=== PATIENT | female | born 1935 | race Two or more races ===

== ENCOUNTER 2018-01-28 05:47 | Emergency (ER) | payer OTHER ==
[~2018-01-28] VITALS: Ht 152.4 cm; Wt 50.8 kg
[~2018-01-28 05:47] MED LIST: AMARANTH100 GM MC; CLONAZEPAM0.5 MG/TAB; EFFEXOR25 MG PO; ENALAPRIL MALEAT5 MG PO; GLIMEPIRIDE4 MG; HUMULIN 50/50 V10 ML SQ; VASOFLEX TABLE1 EACH PO; VISTARIL25 MG PO
== END 2018-01-28 14:28 | disposition home or self-care (01) ==
LOC: ER 05:47 → CPU-OBS 05:55 → ER 14:28
DX: R07.89 Other chest pain (principal); F41.8 Other specified anxiety disorders

== ENCOUNTER 2018-05-26 05:49 | Emergency (ER) | payer OTHER ==
[~2018-05-26] VITALS: Ht 152.4 cm; Wt 50.8 kg
[2018-05-26] MEDS ORDERED: VISTARIL50 MG PO (08:26)
[2018-05-26] MEDS ORDERED: APETIGEN-PLUS1 EACH PO (08:26)
[2018-05-26] MEDS ORDERED: CENTRUM WOMEN1 EACH PO (08:26)
[2018-05-26] MEDS ORDERED: SUPER B-50 COM1 EACH PO (08:26)
== END 2018-05-26 08:42 | disposition home or self-care (01) ==
LOC: ER 05:49
DX: R00.2 Palpitations (principal); G47.09 Other insomnia; F41.8 Other specified anxiety disorders; F32.89 Other specified depressive episodes

== ENCOUNTER 2018-06-23 08:19 | Emergency (ER) | payer OTHER ==
[~2018-06-23] VITALS: Ht 152.4 cm; Wt 52.6 kg
[~2018-06-23 08:19] MED LIST changes: +APETIGEN-PLUS1 EACH PO; +CENTRUM WOMEN1 EACH PO; +SUPER B-50 COM1 EACH PO; +VISTARIL50 MG PO
[2018-06-23] MEDS ORDERED: CLONAZEPAM0.5 MG PO (08:43)
[2018-06-23] MEDS ORDERED: VASOTEC5 MG PO (08:43)
[2018-06-23] MEDS ORDERED: GLIMEPIRIDE4 MG PO (08:44)
== END 2018-06-23 15:10 | disposition home or self-care (01) ==
LOC: ER 08:19
DX: E86.0 Dehydration (principal); R42 Dizziness and giddiness; E11.65 Type 2 diabetes mellitus with hyperglycemia

== ENCOUNTER 2018-06-27 13:22 | Outpatient (CLI) | payer OTHER ==
[~2018-06-27 13:22] MED LIST changes: +CLONAZEPAM0.5 MG PO; +GLIMEPIRIDE4 MG PO; +VASOTEC5 MG PO
== END 2018-06-27 13:35 | disposition home or self-care (01) ==
LOC: RAD 13:22
DX: J44.9 Chronic obstructive pulmonary disease, unspecified (principal)

== ENCOUNTER 2018-12-28 20:39 | Emergency (ER) | payer OTHER ==
[~2018-12-28] VITALS: Ht 152.4 cm; Wt 50.8 kg
== END 2018-12-28 23:53 | disposition home or self-care (01) ==
LOC: ER 20:39
DX: G45.8 Other transient cerebral ischemic attacks and related syndromes (principal); R53.1 Weakness; R47.81 Slurred speech

== ENCOUNTER 2019-02-13 16:49 | Emergency (ER) | payer OTHER ==
[~2019-02-13] VITALS: Ht 152.4 cm; Wt 49.0 kg
== END 2019-02-13 21:34 | disposition home or self-care (01) ==
LOC: ER 16:49
DX: S90.222A Contusion of left lesser toe(s) with damage to nail, initial encounter (principal); W22.8XXA Striking against or struck by other objects, initial encounter; Y93.89 Activity, other specified; Y92.89 Other specified places as the place of occurrence of the external cause; Y99.8 Other external cause status

== ENCOUNTER 2019-04-07 10:15 | Emergency (ER) | payer OTHER ==
[~2019-04-07] VITALS: Ht 149.9 cm; Wt 50.8 kg
== END 2019-04-07 11:44 | disposition home or self-care (01) ==
LOC: ER 10:15
DX: B02.9 Zoster without complications (principal)

== ENCOUNTER 2019-05-07 21:47 | Emergency (ER) | payer OTHER ==
[~2019-05-07] VITALS: Ht 154.9 cm; Wt 50.8 kg
[2019-05-07] MEDS ORDERED: VASOTEC10 MG PO (22:24)
[2019-05-07] MEDS ORDERED: NORVASC5 MG PO (22:25)
[2019-05-08] MEDS ORDERED: MECLIZINE HCL25 MG PO (04:21)
== END 2019-05-08 04:38 ==
LOC: ER 21:47
DX: R42 Dizziness and giddiness (principal); F41.8 Other specified anxiety disorders

== ENCOUNTER 2019-11-05 11:51 | Emergency (ER) | payer OTHER ==
[~2019-11-05] VITALS: Ht 152.4 cm; Wt 50.8 kg
[~2019-11-05 11:51] MED LIST changes: +MECLIZINE HCL25 MG PO; +NORVASC5 MG PO; +VASOTEC10 MG PO
[2019-11-05] MEDS ORDERED: ARTHRITIS PAIN650 M2 (12:12)
[2019-11-05] MEDS ORDERED: SUPER B-50 COM1 EACH (12:14)
[2019-11-05] MEDS ORDERED: DUREZOL5 ML (12:14)
[2019-11-05] MEDS ORDERED: VITAMIN D35000 UNI2 (12:15)
[2019-11-05] MEDS ORDERED: LATANOPROST2.5 ML (12:15)
[2019-11-05] MEDS ORDERED: KETOROLAC TROMET5 M1 (12:15)
[2019-11-05] MEDS ORDERED: ULTRACET PO (13:41)
== END 2019-11-05 13:54 | disposition home or self-care (01) ==
LOC: ER 11:51
DX: M54.89 Other dorsalgia (principal)

== ENCOUNTER 2020-09-13 09:30 | Emergency (ER) | payer OTHER ==
[~2020-09-13] VITALS: Ht 152.4 cm; Wt 51.3 kg
[~2020-09-13 09:30] MED LIST changes: +ARTHRITIS PAIN650 M2; +DUREZOL5 ML; +KETOROLAC TROMET5 M1; +LATANOPROST2.5 ML; +SUPER B-50 COM1 EACH; +ULTRACET PO; +VITAMIN D35000 UNI2
[2020-09-13] MEDS ORDERED: GLIMEPIRIDE4 M1 PO (09:59)
[2020-09-13] MEDS ORDERED: VITAMIN D3125 MC1 PO (10:00)
[2020-09-13] MEDS ORDERED: NORVASC2.5 MG PO (10:00)
[2020-09-13] MEDS ORDERED: BISOPROLOL-HCT1 EACH PO (10:01)
[2020-09-13] MEDS ORDERED: HUMULIN N100 UNIT/2 SQ (10:01)
[2020-09-13] MEDS ORDERED: COMBIGAN EYE DRO5 ML OP (10:02)
[2020-09-14] MEDS ORDERED: VISTARIL25 MG PO (10:49)
[2020-09-14] MEDS ORDERED: PEPCID AC20 MG PO (10:49)
== END 2020-09-13 13:30 | disposition home or self-care (01) ==
LOC: ER 09:30
DX: R00.2 Palpitations (principal); T44.7X5A Adverse effect of beta-adrenoreceptor antagonists, initial encounter; Y92.89 Other specified places as the place of occurrence of the external cause

== ENCOUNTER 2020-09-14 09:19 | Emergency (ER) | payer OTHER ==
[~2020-09-14] VITALS: Ht 149.9 cm; Wt 51.7 kg
[~2020-09-14 09:19] MED LIST changes: +BISOPROLOL-HCT1 EACH PO; +COMBIGAN EYE DRO5 ML OP; +GLIMEPIRIDE4 M1 PO; +HUMULIN N100 UNIT/2 SQ; +NORVASC2.5 MG PO; +VITAMIN D3125 MC1 PO
[2020-09-14] MEDS ORDERED: VISTARIL25 MG PO (10:49)
[2020-09-14] MEDS ORDERED: PEPCID AC20 MG PO (10:49)
== END 2020-09-14 15:56 | disposition home or self-care (01) ==
LOC: ER 09:19
DX: R11.0 Nausea (principal); R53.81 Other malaise; Z03.818 Encounter for observation for suspected exposure to other biological agents ruled out

== ENCOUNTER 2020-11-22 18:30 | Emergency (ER) | payer OTHER ==
[~2020-11-22] VITALS: Ht 160 cm; Wt 50.8 kg
[~2020-11-22 18:30] MED LIST changes: +PEPCID AC20 MG PO
[2020-11-22] MEDS ORDERED: VASOTEC10 MG (19:36)
== END 2020-11-23 00:35 | disposition home or self-care (01) ==
LOC: ER 18:30
DX: E11.65 Type 2 diabetes mellitus with hyperglycemia (principal); I16.0 Hypertensive urgency; I10 Essential (primary) hypertension; Z79.4 Long term (current) use of insulin

== ENCOUNTER 2021-05-19 06:39 | Emergency (ER) | payer OTHER ==
[~2021-05-19] VITALS: Ht 152.4 cm; Wt 52.6 kg
[~2021-05-19 06:39] MED LIST changes: +VASOTEC10 MG
== END 2021-05-19 13:21 | disposition home or self-care (01) ==
LOC: ER 06:39
DX: R53.1 Weakness (principal); E86.0 Dehydration

== ENCOUNTER 2022-01-05 20:30 | Emergency (ER) | payer OTHER ==
[~2022-01-05] VITALS: Ht 154.9 cm; Wt 51.7 kg
== END 2022-01-05 23:42 | disposition home or self-care (01) ==
LOC: ER 20:30
DX: F41.8 Other specified anxiety disorders (principal); F45.21 Hypochondriasis; F41.0 Panic disorder [episodic paroxysmal anxiety]; F32.A Depression, unspecified; E11.9 Type 2 diabetes mellitus without complications; I10 Essential (primary) hypertension; Z79.4 Long term (current) use of insulin; Z79.84 Long term (current) use of oral hypoglycemic drugs

== ENCOUNTER 2022-05-27 17:04 | Emergency (ER) | payer OTHER ==
[~2022-05-27] VITALS: Ht 154.9 cm; Wt 53.1 kg
== END 2022-05-27 20:40 ==
LOC: ER 17:04
DX: E11.649 Type 2 diabetes mellitus with hypoglycemia without coma (principal); Z79.4 Long term (current) use of insulin; Z79.84 Long term (current) use of oral hypoglycemic drugs; T38.3X5A Adverse effect of insulin and oral hypoglycemic [antidiabetic] drugs, initial encounter; Y92.9 Unspecified place or not applicable

== ENCOUNTER 2022-06-01 15:51 | Emergency (ER) | payer OTHER ==
[~2022-06-01] VITALS: Ht 157.5 cm; Wt 52.2 kg
== END 2022-06-01 18:39 | disposition home or self-care (01) ==
LOC: ER 15:51
DX: F41.9 Anxiety disorder, unspecified (principal); I10 Essential (primary) hypertension; E11.9 Type 2 diabetes mellitus without complications; Z79.4 Long term (current) use of insulin; Z79.84 Long term (current) use of oral hypoglycemic drugs

== ENCOUNTER 2022-08-02 13:48 | Emergency (ER) | payer OTHER ==
[~2022-08-02] VITALS: Ht 157.5 cm; Wt 52.2 kg
[2022-08-02] MEDS ORDERED: TOPROL XL25 M1 PO (14:14)
== END 2022-08-02 16:32 | disposition home or self-care (01) ==
LOC: ER 13:48
DX: E11.65 Type 2 diabetes mellitus with hyperglycemia (principal); Z79.4 Long term (current) use of insulin

== ENCOUNTER 2022-09-06 17:58 | Emergency (ER) | payer OTHER ==
[~2022-09-06] VITALS: Ht 154.9 cm; Wt 53.5 kg
[~2022-09-06 17:58] MED LIST changes: +TOPROL XL25 M1 PO
== END 2022-09-06 21:28 | disposition home or self-care (01) ==
LOC: ER 17:58
DX: I10 Essential (primary) hypertension (principal); E11.65 Type 2 diabetes mellitus with hyperglycemia; Z79.4 Long term (current) use of insulin; R07.89 Other chest pain; Z20.822 Contact with and (suspected) exposure to COVID-19

== ENCOUNTER 2023-08-06 06:34 | Emergency (ER) | payer OTHER ==
[~2023-08-06] VITALS: Ht 152.4 cm; Wt 72.6 kg
[~2023-08-06 06:34] MED LIST changes: +NABUMETONE500 MG PO; +XOPENEX0.63 MG/3 IH
[2023-08-06] MEDS ORDERED: CLARITIN10 M1 PO (06:55)
[2023-08-06 10:39] LABS: HEMATOCRIT 38.7 % (36.0-45.00); HEMOGLOBIN 13.1 g/dL (12.0-15.00); MEAN CELL VOLUME 87.6 fL (80.00-100.00); MEAN CORPUSCULAR HEMOGLOBIN 29.6 pg (27.00-32.0); MEAN CORPUSCULAR HGB CONC 33.7 g/dl (32.0-36.0); PLATELET COUNT 241 K/uL (150-450); RED BLOOD COUNT 4.42 M/uL (4.00-6.00); RED CELL DISTRIBUTION WIDTH 13.3 % (11.5-14.5)
[2023-08-06 11:19] LABS: ALBUMIN 3.7 gm/dL (3.4-5.0); BILIRUBIN TOTAL 0.49 mg/dL (0.3-1.2); CALCIUM 9.2 mg/dL (8.5-10.1); CREATININE SERUM 0.76 mg/dL (0.55-1.02); GFR 72.16; GLOBULINA 4.4 G/DL (2.4-3.5); POTASSIUM 4.3 mEq/L (3.5-5.1); TOTAL PROTEIN 8.1 gm/dL (6.4-8.2)
== END 2023-08-06 14:16 | disposition home or self-care (01) ==
LOC: ER 06:34
PROVIDERS: Emergency Medicine
DX: F41.9 Anxiety disorder, unspecified (principal); R11.10 Vomiting, unspecified; E11.9 Type 2 diabetes mellitus without complications; Z79.4 Long term (current) use of insulin; Z79.84 Long term (current) use of oral hypoglycemic drugs; I10 Essential (primary) hypertension; Z20.822 Contact with and (suspected) exposure to COVID-19
CPT/HCPCS: 36415; 93005; 96365; 99284; J2405

== ENCOUNTER 2023-08-20 03:07 | Emergency (ER) | payer OTHER ==
[~2023-08-20] VITALS: Ht 160 cm; Wt 68.0 kg
[~2023-08-20 03:07] MED LIST changes: +CLARITIN10 M1 PO
[2023-08-20] MEDS ORDERED: BENAZEPRIL HCL5 MG PO (03:30)
[2023-08-20 04:44] LABS: HEMATOCRIT 35.8 % (36.0-45.00); HEMOGLOBIN 12.3 g/dL (12.0-15.00); MEAN CELL VOLUME 85.3 fL (80.00-100.00); MEAN CORPUSCULAR HEMOGLOBIN 29.3 pg (27.00-32.0); MEAN CORPUSCULAR HGB CONC 34.3 g/dl (32.0-36.0); PLATELET COUNT 263 K/uL (150-450); RED CELL DISTRIBUTION WIDTH 13.2 % (11.5-14.5)
[2023-08-20 05:22] LABS: CALCIUM 9.3 mg/dL (8.5-10.1); CREATININE SERUM 0.71 mg/dL (0.55-1.02); GFR 78.05; POTASSIUM 4.16 mEq/L (3.5-5.1)
[2023-08-20 05:27] LABS: ABG PH 7.403 (7.35-7.45); ABG PO2 80.1 mmHg (80-100); ABG pCO2 26.1 mmHg (35-45); BASE EXCESS -6.9 mmol/l; BICARBONATE 15.9 mmol/l (23-25); SaO2 95.5 %; Tco2 16.7 mmol/l
[2023-08-20 05:28] LABS: allen test SATISFACTORY; o2 21 %; puncture site RADIAL RIGHT
[2023-08-20] MEDS ORDERED: ALBUTEROL2.5 MG/3 M IH (08:38)
[2023-08-20] MEDS ORDERED: TUSSIN DM SYRU118 ML PO (08:38)
== END 2023-08-20 08:46 ==
LOC: ER 03:07
PROVIDERS: General Practice
DX: R06.02 Shortness of breath (principal); I10 Essential (primary) hypertension

== ENCOUNTER 2024-04-30 15:19 | Emergency (ER) | payer OTHER ==
[~2024-04-30] VITALS: Ht 149.9 cm; Wt 57.6 kg
[~2024-04-30 15:19] MED LIST changes: +ALBUTEROL2.5 MG/3 M IH; +BENAZEPRIL HCL5 MG PO; +TUSSIN DM SYRU118 ML PO
[2024-04-30] MEDS ORDERED: JARDIANCE10 MG PO (15:27)
[2024-04-30] MEDS ORDERED: INSULIN REGULAR, HUMAN 1,000 UNIT/10 ML UNITS SUBCUTANEO ONE (17:00)
[2024-04-30] MEDS ORDERED: CLONIDINE HCL 0.1 MG TABLET PO ONE ×2 (17:00→17:47)
[2024-04-30 17:16] LABS: HEMATOCRIT 36.4 % (36.0-45.00); HEMOGLOBIN 12.5 g/dL (12.0-15.00); MEAN CELL VOLUME 84.6 fL (80.00-100.00); MEAN CORPUSCULAR HEMOGLOBIN 28.9 pg (27.00-32.0); MEAN CORPUSCULAR HGB CONC 34.2 g/dl (32.0-36.0); PLATELET COUNT 244 K/uL (150-450); RED BLOOD COUNT 4.31 M/uL (4.00-6.00); RED CELL DISTRIBUTION WIDTH 13.9 % (11.5-14.5)
[2024-04-30 17:35] LABS: ALBUMIN 3.8 gm/dL (3.4-5.0); BILIRUBIN TOTAL 0.29 mg/dL (0.3-1.2); CALCIUM 9.2 mg/dL (8.5-10.1); CREATININE SERUM 0.66 mg/dL (0.55-1.02); GFR 84.72; GLOBULINA 3.8 G/DL (2.4-3.5); POTASSIUM 4.21 mEq/L (3.5-5.1); TOTAL PROTEIN 7.6 gm/dL (6.4-8.2)
[2024-04-30 17:47] LABS: PH,URINE 6.5 (5.0-8.0); URINE APPEARANCE Clear; URINE BILIRRUBIN Negative (NEGATIVE); URINE BLOOD Negative; URINE COLOR Yellow; URINE KETONE Negative (NEGATIVE); URINE LEUKOCYTE Trace; URINE NITRATE Negative; URINE PROTEIN Negative (NEGATIVE); URINE UROBILINOGEN 0.2 E.U./dl
[2024-04-30 17:48] LABS: URINE WBC 23.4 uL (0.0-23.2)
[2024-04-30 17:49] LABS: URINE GLUCOSE 100 MG/DL (NEGATIVE); URINE RBC 1.5 uL (0.0-20.8)
== END 2024-04-30 20:07 | disposition home or self-care (01) ==
LOC: ER 15:20
PROVIDERS: General Practice
DX: E11.65 Type 2 diabetes mellitus with hyperglycemia (principal); Z79.4 Long term (current) use of insulin; I10 Essential (primary) hypertension; I11.9 Hypertensive heart disease without heart failure; Z20.822 Contact with and (suspected) exposure to COVID-19
CPT/HCPCS: 36415; 71045; 96372; 99283; J1815

== ENCOUNTER 2024-10-24 21:10 | Emergency (ER) | payer OTHER ==
[~2024-10-24] VITALS: Ht 152.4 cm; Wt 49.9 kg
[~2024-10-24 21:10] MED LIST changes: +JARDIANCE10 MG PO
[2024-10-24] MEDS ORDERED: INSULIN REGULAR, HUMAN 1,000 UNIT/10 ML UNITS SUBCUTANEO ONE (22:15)
[2024-10-24 23:02] LABS: MEAN CELL VOLUME 87.1 fL (80.00-100.00); MEAN CORPUSCULAR HGB CONC 33.3 g/dl (32.0-36.0); PLATELET COUNT 235 K/uL (150-450); RED BLOOD COUNT 4.48 M/uL (4.00-6.00); RED CELL DISTRIBUTION WIDTH 13.7 % (11.5-14.5)
[2024-10-24 23:28] LABS: ALBUMIN 3.8 gm/dL (3.4-5.0); BILIRUBIN TOTAL 0.36 mg/dL (0.3-1.2); CREATININE SERUM 0.76 mg/dL (0.55-1.02); GFR 71.99; POTASSIUM 3.72 mEq/L (3.5-5.1); TOTAL PROTEIN 7.8 gm/dL (6.4-8.2)
[2024-10-24] MEDS ORDERED: MOTION SICKNESS25 M1 PO (23:59)
== END 2024-10-25 00:16 | disposition home or self-care (01) ==
LOC: ER 21:10
PROVIDERS: General Practice
DX: R42 Dizziness and giddiness (principal); I10 Essential (primary) hypertension; E11.9 Type 2 diabetes mellitus without complications; Z79.4 Long term (current) use of insulin

== ENCOUNTER 2025-06-08 15:14 | Outpatient (CLI) | payer OTHER ==
[~2025-06-08 15:14] MED LIST changes: +MOTION SICKNESS25 M1 PO
== END 2025-06-08 15:16 | disposition home or self-care (01) ==
LOC: RAD 15:14
DX: Z01.818 Encounter for other preprocedural examination (principal)